=== PATIENT | female | born 1990 | race Caucasian/White ===

== ENCOUNTER 2016-11-01 17:52 | Emergency (ER) | payer OTHER ==
[2016-11-01 18:11] VITALS: O2SAT 98
--- NOTE | 2016-11-01 18:19 | ERPHSYRPT ---
- History of Present Illness Time Seen by Provider: 11/01/16 18:13 Source: patient Exam Limitations: clinical condition Patient Subjective Stated Complaint: pt co vaginal bleeding about a 45 mins ago , blood when wiped after voiding x2, cramping on and off but nonw now, pt also states she fell today, tripped on curb and fell, landed on buttock. Triage Nursing Assessment: pt alert, resp easy, skin w/d pink, abd soft nontender, denies pain with urination, no fever, 4,para 3 Physician History: PATIENT IS A -4, PARA-3, -0, 9 WEEKS GESTATION COMPLAINS OF PELVIC CRAMPING, AND VAGINAL SPOTTING AFTER SLIP AND FALL ONTO BUTTOCK. DENIES PASSAGE OF TISSUE, OR CLOTS. Timing/Duration: today Activites at Onset: none Quality: cramping Onset Location: pelvic pain Pain Radiation: none Severity of Pain-Max: mild Severity of Pain-Current: mild Prior abdominal problems: none Sexual intercourse history: non-contributory Modifying Factors: Improves With: nothing Associated Symptoms: denies symptoms Allergies/Adverse Reactions: No Known Drug Allergies Allergy (Unverified 11/01/16 18:11) Home Medications: Albuterol Sulfate [Proair Hfa] 2 puff PRN 11/01/16 [History] Vits W-Ca,Fe,FA(<1Mg) [] 1 ea DAILY 11/01/16 [History] Hx Influenza Vaccination/Date Given: No Hx Pneumococcal Vaccination/Date Given: No - Review of Systems Constitutional: No Fever, No Chills Eyes: No Symptoms Ears, Nose, & Throat: No Symptoms Respiratory: No Symptoms, No Cough, No Dyspnea Cardiac: No Symptoms, No Chest Pain, No Edema, No Syncope Abdominal/Gastrointestinal: No Symptoms, No Abdominal Pain, No Nausea, No Vomiting, No Diarrhea Genitourinary Symptoms: , Vaginal Bleeding, No Dysuria Musculoskeletal: No Symptoms, No Back Pain, No Neck Pain Skin: No Rash Neurological: No Dizziness, No Focal Weakness, No Sensory Changes Psychological: No Symptoms Endocrine: No Symptoms All Other Systems: Reviewed and Negative - Past Medical History Pertinent Past Medical History: No - Past Surgical History Past Surgical History: No - Social History Smoking Status: Current every day smoker Exposure to second hand smoke: Yes Drug Use: none Patient Lives Alone: No - Female History Hx Last Menstrual Period: august 31 2016 Expected Date of Delivery: 06/07/17 - Nursing Vital Signs Nursing Vital Signs: Initial Vital Signs Temperature 98 F Temperature Source Oral Pulse Rate 72 Respiratory Rate 16 Blood Pressure [] 105/60 Pain Intensity 0 - Physical Exam General Appearance: no apparent distress, alert Eye Exam: PERRL/EOMI, eyes nml inspection Ears, Nose, Throat Exam: normal ENT inspection, TMs normal, pharynx normal, moist mucous membranes Neck Exam: normal inspection, non-tender, supple, full range of motion Respiratory Exam: normal breath sounds, lungs clear, No respiratory distress Cardiovascular Exam: regular rate/rhythm, normal heart sounds, normal peripheral pulses Gastrointestinal/Abdomen Exam: soft, normal bowel sounds, tenderness ( SUPRAPUBIC TENDERNESS), No mass Pelvic Exam: normal external exam, other (TRACE BLOOD IN VAGINAL VAULT, EXTERNAL OS OF CERVIC CLOSED, UTERINE SIZE 8-9 WEEKS) Back Exam: normal inspection, normal range of motion, No CVA tenderness, No vertebral tenderness Extremity Exam: normal inspection, normal range of motion, pelvis stable Neurologic Exam: alert, oriented x 3, cooperative, neon technician II-XII nml as tested, normal mood/affect, sensation nml, No motor deficits Skin Exam: normal color, warm, dry Lymphatic Exam: No adenopathy SpO2: 98 Oxygen Delivery: Room Air - Radiology Ultrasound Exam Pelvis Ultrasound: tele radiology report OB Ultrasound: discussed w/radiologist (THERE IS A 8 WEEK INTRAUTERINE FETUS WITH FHT 156) Ordered Tests: Active Orders 24 hr Category Date Time Status Pelvic Exam Assist STAT Care 11/01/16 18:28 Active OB <14 WKS 1ST GESTATION [US] Stat Exams 11/01/16 18:27 Taken HCG,QUALITATIVE URINE Stat Lab 11/01/16 18:15 Completed UA W/ MICROSCOPIC Stat Lab 11/01/16 18:15 Results Wet Prep Stat Lab 11/01/16 18:15 Results Lab/Rad Data: Laboratory Results 11/01/16 11/01/16 Range/Units 18:15 18:15 Ur Collection Type CLEAN CATCH Urine Color YELLOW (YELLOW) Urine Appearance CLEAR (CLEAR) Urine pH 6.0 (5-6) Ur Specific [place] 1.005 (1.005-1.025) Urine Protein NEGATIVE (Negative) Urine Ketones NEGATIVE (NEGATIVE) Urine Blood 50 (0-5) Telly/ul Urine Nitrite NEGATIVE (NEGATIVE) Urine Bilirubin MODERATE (NEGATIVE) Urine Urobilinogen NORMAL (0-1) mg/dL Ur Leukocyte Esterase TRACE (NEGATIVE) Urine Microscopic RBC 0-2 (0-2) /HPF Urine Microscopic WBC 0-2 (0-5) /HPF Ur Epithelial Cells MODERATE (FEW) /HPF Urine Bacteria MODERATE (NEGATIVE) /HPF Urine Mucus MODERATE (NEGATIVE) /HPF Urine Glucose NEGATIVE (NEGATIVE) mg/dL Urine HCG, Qual POSITIVE (Negative) WBC (Wet Prep) Pending RBC (Wet Prep) Pending Epi Cells (Wet Prep) Pending Bacteria (Wet Prep) Pending Clue Cells (Wet Prep) Pending Trichomonas (Wet Prep) Pending Budding Yeast (Wet Prp) Pending Specimen Received 11/01/16:1815 - Progress Counseled pt/family regarding: lab results, diagnosis, need for follow-up - Departure Time of Disposition: 19:20 Departure Disposition: Home Clinical Impression: THREATENED Condition: Stable Critical Care Time: No Instructions: Threatened Additional Instructions: FOLLOWUP WITH YOUR PRIMARY CARE PHYSICIAN IN 1 WEEK. REDUCE ACTIVITY LEVEL. RETURN TO EMERGENCY FOR INCREASED VAGINAL BLEEDING OR PASSAGE OF TISSUE.
[2016-11-01 18:45] LABS: Bilirubin MODERATE (NEGATIVE); Collection Type CLEAN CATCH; Glucose NEGATIVE (NEGATIVE); Leukocyte Esterase TRACE (NEGATIVE)
[2016-11-01 18:46] LABS: Bacteria MODERATE /HPF (NEGATIVE); Blood 50 Ery/ul (0-5); COMPLETE URINE MICROSCOPIC? YES; Epithelial Cells MODERATE /HPF (FEW); Mucus MODERATE /HPF (NEGATIVE); WBC 0-2 /HPF (0-5)
[2016-11-01 18:47] LABS: ADD URINE CULTURE? YES (NO)
[2016-11-01 19:13] VITALS: BP 105/60; PULSE 72
--- NOTE | 2016-11-02 09:08 | XRAY ---
Indication: Spotting following fall. Two-dimensional transabdominal early OB ultrasound performed. Comparison: None There is a single intrauterine gestational sac with presence of a single pole and yolk sac. The mean crown-rump length measures 1.72 cm corresponding to 8 weeks 1 day. heart rate 156 bpm. No abnormal subchorionic fluid collection. Left and right ovaries sonographically unremarkable. No suspicious adnexal mass or free fluid. Impression: Single viable intrauterine measuring 8 weeks 1 day. Expected date confinement is June 12, 2017. Comment: Preliminary report was given.
== END 2016-11-01 19:23 | disposition home or self-care (01) ==
LOC: ED 17:52
DX: O20.0 Threatened abortion (principal)
CPT/HCPCS: 76801; 81000; 84703; 87086; 99284

== ENCOUNTER 2017-01-15 17:37 | Emergency (ER) | payer OTHER ==
--- NOTE | 2017-01-15 19:37 | ERPHSYRPT ---
- History of Present Illness Time Seen by Provider: 01/15/17 19:25 Source: patient Exam Limitations: no limitations Patient Subjective Stated Complaint: pt states she is 19 weeks and 4 days . states she is worried she maybe pre-ecplamptic. states she has lower abdominal cramping that has been normal for her . denies any vaginal bleeding. Triage Nursing Assessment: pt pink, warm, dry. bilateral edema noted to lower extremities. Physician History: FOR THE PAST 3 DAYS PT HAS HAD SWELLING IN THE LEGS. PT STATES SHE IS 19 WEEKS AND HAS HAD GOOD MOVEMENT TODAY. PT ALSO C/O DAILY VOMITING DURING THIS EXCEPT FOR THE PAST 3 DAYS. LAST BM WAS 3 DAYS AGO AND HARD. PT DENIES CHEST PAIN, SHORTNESS OF AIR, FEVER; ADMITS TO LOWER ABDOMINAL CRAMPS DURING AND DECREASED URINARY OUTPUT FOR THE PAST 3 DAYS. Allergies/Adverse Reactions: No Known Drug Allergies Allergy (Unverified 11/01/16 18:11) Home Medications: Vits W-Ca,Fe,FA(<1Mg) [] 1 ea PO DAILY 11/01/16 [History] Hx Tetanus, Diphtheria Vaccination/Date Given: Yes (up to date) Hx Influenza Vaccination/Date Given: No Hx Pneumococcal Vaccination/Date Given: No Immunizations Up to Date: Yes - Review of Systems Constitutional: No Fever Respiratory: No Dyspnea Cardiac: No Chest Pain Abdominal/Gastrointestinal: Abdominal Pain, Vomiting Genitourinary Symptoms: Other (DECREASED URINARY OUTPUT FOR THE PAST 3 DAYS.), No Vaginal Discharge Musculoskeletal: Other (SWELLING IN LEGS FOR THE PAST 3 DAYS) All Other Systems: Reviewed and Negative - Past Medical History Pertinent Past Medical History: Yes Other Medical History: opiate dependency - Past Surgical History Past Surgical History: No - Social History Smoking Status: Current every day smoker How long have you smoked: 10 Exposure to second hand smoke: Yes Drug Use: none Patient Lives Alone: No - Female History Hx Last Menstrual Period: 08/2016 Expected Date of Delivery: 06/07/17 - Nursing Vital Signs Nursing Vital Signs: Initial Vital Signs Temperature 98.0 F 01/15/17 18:29 Pulse Rate 73 01/15/17 18:29 Respiratory Rate 16 01/15/17 18:29 Blood Pressure 116/63 01/15/17 18:29 O2 Sat by Pulse Oximetry 100 01/15/17 18:29 Pain Scale Pain Intensity 0 - Physical Exam General Appearance: alert Eye Exam: PERRL/EOMI Ears, Nose, Throat Exam: pharynx normal, moist mucous membranes Neck Exam: normal inspection Respiratory Exam: lungs clear Cardiovascular Exam: normal heart sounds Gastrointestinal/Abdomen Exam: normal bowel sounds, tenderness (MILD LOWER ABDOMINAL TENDERNESS), other (GRAVID UTERUS WITH FUNDUS 1 CM BELOW UMBILICUS) Back Exam: normal range of motion Extremity Exam: swelling (+1 EDEMA OF LOWER LEGS) Neurologic Exam: alert, cooperative Skin Exam: warm, dry SpO2 Interpretation: normal SpO2: 100 Oxygen Delivery: Room Air - Course Nursing assessment & vital signs reviewed: Yes - Radiology Ultrasound Exam OB Ultrasound: Other (TECH REPORT: 19 WEEK 2 DAY, HR = 141, NO ABNORMALITY.) Ordered Tests: Active Orders 24 hr Category Date Time Status Clean Catch Urine Specimen STAT Care 01/15/17 19:01 Active OB >14 WKS 1st GESTATION [US] Stat Exams 01/15/17 19:43 Ordered AMYLASE Stat Lab 01/15/17 19:43 Completed CBC W DIFF Stat Lab 01/15/17 19:43 Completed CMP Stat Lab 01/15/17 19:43 Completed LIPASE Stat Lab 01/15/17 19:43 Completed UA W/RFX UR CULTURE Stat Lab 01/15/17 19:30 Completed Urine Triage Profile Stat Lab 01/15/17 19:48 Completed Lab/Rad Data: Laboratory Result Diagrams 01/15/17 19:43 01/15/17 19:43 Laboratory Results 01/15/17 01/15/17 01/15/17 Range/Units 19:48 19:43 19:43 WBC 6.6 (4.0-10.5) K/mm3 RBC 3.45 L (4.1-5.4) M/mm3 Hgb 11.1 L (12.0-16.0) gm/dl Hct 32.5 L (35-47) % MCV 94.2 (78-100) fl MCH 32.1 H (26-32) pg MCHC 34.2 (32-36) g/dl RDW 12.8 (11.5-14.0) % Plt Count 133 L (150-450) K/mm3 MPV 10.3 H (6-9.5) fl Gran % 71.7 H (36.0-66.0) % Lymphocytes % 16.6 L (24.0-44.0) % Monocytes % 8.9 (0.0-12.0) % Eosinophils % 2.6 (0.00-5.0) % Basophils % 0.2 (0.0-0.4) % Basophils # 0.01 (0-0.4) Sodium 140 (136-145) mEq/L Potassium 3.7 (3.5-5.1) mEq/L Chloride 107 (98-107) mEq/L Carbon Dioxide 26.3 (21-32) mEq/L Anion Gap 10.7 (5-15) MEQ/L BUN 5 L (9-20) mg/dL Creatinine 0.53 L (0.55-1.30) mg/dl Estimated GFR > 60 ML/MIN Glucose 89 (70-110) MG/DL Calcium 8.9 (8.5-10.1) mg/dL Total Bilirubin 0.50 (0.2-1.0) mg/dL AST 18 (15-37) U/L ALT 18 (12-78) U/L Alkaline Phosphatase 66 (46-116) U/L Serum Total Protein 5.3 L (6.4-8.2) gm/dL Albumin 2.6 L (3.4-5.0) g/dL Amylase 24 L (25-115) U/L Lipase 50 L (73-393) U/L Ur Collection Type Urine Color (YELLOW) Urine Appearance (CLEAR) Urine pH (5-6) Ur Specific [place] (1.005-1.025) Urine Protein (Negative) Urine Ketones (NEGATIVE) Urine Blood (0-5) Telly/ul Urine Nitrite (NEGATIVE) Urine Bilirubin (NEGATIVE) Urine Urobilinogen (0-1) mg/dL Ur Leukocyte Esterase (NEGATIVE) Urine Glucose (NEGATIVE) mg/dL Urine Opiates Level NEG. (NEGATIVE) Ur Methadone NEG. (NEGATIVE) Urine Barbiturates NEG. (NEGATIVE) Ur Phencyclidine (PCP) NEG. (NEGATIVE) Urine Amphetamine NEG. (NEGATIVE) U Benzodiazepine Level NEG. (NEGATIVE) Urine Cocaine NEG. (NEGATIVE) Urine Marijuana (THC) NEG. (NEGATIVE) Specimen Received 01/15/17 Range/Units 19:30 WBC (4.0-10.5) K/mm3 RBC (4.1-5.4) M/mm3 Hgb (12.0-16.0) gm/dl Hct (35-47) % MCV (78-100) fl MCH (26-32) pg MCHC (32-36) g/dl RDW (11.5-14.0) % Plt Count (150-450) K/mm3 MPV (6-9.5) fl Gran % (36.0-66.0) % Lymphocytes % (24.0-44.0) % Monocytes % (0.0-12.0) % Eosinophils % (0.00-5.0) % Basophils % (0.0-0.4) % Basophils # (0-0.4) Sodium (136-145) mEq/L Potassium (3.5-5.1) mEq/L Chloride (98-107) mEq/L Carbon Dioxide (21-32) mEq/L Anion Gap (5-15) MEQ/L BUN (9-20) mg/dL Creatinine (0.55-1.30) mg/dl Estimated GFR ML/MIN Glucose (70-110) MG/DL Calcium (8.5-10.1) mg/dL Total Bilirubin (0.2-1.0) mg/dL AST (15-37) U/L ALT (12-78) U/L Alkaline Phosphatase (46-116) U/L Serum Total Protein (6.4-8.2) gm/dL Albumin (3.4-5.0) g/dL Amylase (25-115) U/L Lipase (73-393) U/L Ur Collection Type CLEAN CATCH Urine Color LT.YELLOW (YELLOW) Urine Appearance CLEAR (CLEAR) Urine pH 6.0 (5-6) Ur Specific [place] 1.010 (1.005-1.025) Urine Protein NEGATIVE (Negative) Urine Ketones NEGATIVE (NEGATIVE) Urine Blood NEGATIVE (0-5) Telly/ul Urine Nitrite NEGATIVE (NEGATIVE) Urine Bilirubin NEGATIVE (NEGATIVE) Urine Urobilinogen NORMAL (0-1) mg/dL Ur Leukocyte Esterase NEGATIVE (NEGATIVE) Urine Glucose NEGATIVE (NEGATIVE) mg/dL Urine Opiates Level (NEGATIVE) Ur Methadone (NEGATIVE) Urine Barbiturates (NEGATIVE) Ur Phencyclidine (PCP) (NEGATIVE) Urine Amphetamine (NEGATIVE) U Benzodiazepine Level (NEGATIVE) Urine Cocaine (NEGATIVE) Urine Marijuana (THC) (NEGATIVE) Specimen Received 01/15/171929 - Departure Time of Disposition: 20:43 Departure Disposition: Home Clinical Impression: DEPENDENT EDEMA OF LEGS, ABDOMINAL CRAMPS Condition: Stable Critical Care Time: No Referrals: GLENNY MADERA MD [Primary Care Provider] - Instructions: Dependent Edema Additional Instructions: FOLLOW UP WITH PRIVATE DOCTOR TOMORROW. ELEVATE LEGS ABOVE HEART LEVEL FOR 24 HOURS.
[2017-01-15 19:38] LABS: ADD URINE CULTURE? NO (NO); Bilirubin NEGATIVE (NEGATIVE); Blood NEGATIVE Ery/ul (0-5); COMPLETE URINE MICROSCOPIC? NO; Collection Type CLEAN CATCH; Glucose NEGATIVE (NEGATIVE); Leukocyte Esterase NEGATIVE (NEGATIVE)
[2017-01-15 20:17] LABS: BASOPHIL % 0.2 % (0.0-0.4); Eosinophil % 2.6 % (0.00-5.0); Granulocytes % 71.7 % (36.0-66.0); Lymphocytes % 16.6 % (24.0-44.0); Mean Cell Volume 94.2 fl (78-100); Mean Platelet Volume 10.3 fl (6-9.5); Monocytes % 8.9 % (0.0-12.0); Platelet Count 133 K/mm3 (150-450); Red Blood Count 3.45 M/mm3 (4.1-5.4); Red Cell Distribution Width 12.8 % (11.5-14.0); White Blood Count 6.6 K/mm3 (4.0-10.5)
[2017-01-15 20:21] LABS: Mean Corpuscular Hemoglobin 32.1 pg (26-32)
[2017-01-15 20:23] LABS: ALBUMIN 2.6 g/dL (3.4-5.0); ANION GAP 10.7 MEQ/L (5-15); BLOOD UREA NITROGEN 5 mg/dL (9-20); CHLORIDE 107 mEq/L (98-107); Carbon Dioxide 26.3 mEq/L (21-32); Glucose 89 MG/DL (70-110); LIPASE 50 U/L (73-393); Potassium 3.7 mEq/L (3.5-5.1); SODIUM 140 mEq/L (136-145)
[2017-01-15 20:34] LABS: ALKALINE PHOSPHATASE 66 U/L (46-116); SGOT/AST 18 U/L (15-37); SGPT/ALT 18 U/L (12-78); Total Protein 5.3 gm/dL (6.4-8.2)
[2017-01-15 20:48] VITALS: BP 98/62; PULSE 88; O2SAT 98
--- NOTE | 2017-01-16 09:12 | XRAY ---
Indication: Pain. 2-dimensional OB ultrasound performed. Comparison: January 07, 2017. Again there is a single viable intrauterine again in breech presentation. Normal four-chamber heart with heart rate 141 bpm. Normal three-vessel cord and cord insertion. Visualized head, stomach, and kidneys are unremarkable. Placenta is again anterior without abruption/previa. Cervical length measures 3.4 cm. BPD measures 4.59 cm corresponding to 19 weeks 6 days. HC measures 16.65 cm corresponding to 19 weeks 2 days. AC measures 14.46 cm corresponding to 19 weeks 5 days. FL measures 2.65 cm corresponding to 18 weeks 0 days. Impression: Again single viable intrauterine with mean gestational age 19 weeks 2 days. Normal progression of . Nothing acute.
== END 2017-01-15 20:48 | disposition home or self-care (01) ==
LOC: ED 17:37
DX: O12.02 Gestational edema, second trimester (principal); Z3A.19 19 weeks gestation of pregnancy; R10.9 Unspecified abdominal pain
CPT/HCPCS: 36415; 76805; 80053; 80307; 81002; 82150; 83690; 85025; 99284

== ENCOUNTER 2017-05-01 17:57 | Observation (INO) | payer BC, OTHER ==
[2017-05-01 18:28] VITALS: PULSE 82
[2017-05-01 19:12] LABS: Bacteria MODERATE /HPF (NEGATIVE); Bilirubin NEGATIVE (NEGATIVE); Blood NEGATIVE Ery/ul (0-5); COMPLETE URINE MICROSCOPIC? YES; Collection Type CCMS; Epithelial Cells FEW /HPF (FEW); Glucose NEGATIVE (NEGATIVE); Leukocyte Esterase TRACE (NEGATIVE)
[2017-05-01] MEDS ORDERED: BRETHINE 1 MG/ML SQ ONE (19:21)
[2017-05-01] MEDS ORDERED: Lactated Ringers 1,000 ML IV SCH (19:30)
[2017-05-01] MEDS ORDERED: Lactated Ringers 1,000 ML IV ONE (19:42)
[2017-05-01] MEDS ORDERED: BRETHINE 1 MG/ML ONE (19:42)
[2017-05-01 23:05] VITALS: BP 97/51
== END 2017-05-01 22:50 | disposition home or self-care (01) ==
LOC: UNDOADMOB 17:57 → OB 17:57 → UNDODISOB 22:50
PROVIDERS: ADMIT Family Medicine; ATTEND Family Medicine
DX: Z34.83 Encounter for supervision of other normal pregnancy, third trimester (principal)
CPT/HCPCS: 80307; 81000; G0378

== ENCOUNTER 2017-05-21 18:01 | Observation (INO) | payer BC, OTHER ==
[2017-05-21] MEDS ORDERED: XYLOCAINE 1% HCL 20 ML MDV IJ PRN (18:38)
[2017-05-21] MEDS ORDERED: Ephedrine Sulfate 50 MG/ML IV PRN (18:38)
[2017-05-21] MEDS ORDERED: Zofran 4 MG/2 ML VIAL IV PRN (18:38)
[2017-05-21] MEDS ORDERED: Nubain 10 MG/ML IV PRN (18:38)
[2017-05-21] MEDS ORDERED: STADOL 2 MG IV PRN (18:38)
[2017-05-21] MEDS ORDERED: OB EPIDURAL NAROPIN/SUFENTANIL IN NACL EPIDURAL PRN (18:38)
[2017-05-21] MEDS ORDERED: Lactated Ringers 1,000 ML IV ONE ×2 (18:38)
[2017-05-21] MEDS ORDERED: TYLENOL EXTRA STRENGTH 500 MG PO PRN (18:38)
[2017-05-21] MEDS ORDERED: Phenergan 25 MG INJ IV PRN (18:38)
[2017-05-21] MEDS ORDERED: PITOCIN 30 UNITS/ LR 500 ML 500 ML IV SCH (19:00)
[2017-05-21] MEDS ORDERED: Lactated Ringers 1,000 ML IV SCH (19:00)
[2017-05-21 19:09] LABS: Granulocyte Absolute (ANC) 9.21 (1.4-6.9); Hematocrit 39.1 % (35-47); Hemoglobin 12.8 gm/dl (12.0-16.0); Mean Cell Volume 94.2 fl (78-100); Mean Corpuscular Hemoglobin 30.8 pg (26-32); Mean Corpuscular Hgb Concent. 32.7 g/dl (32-36); Platelet Count 133 K/mm3 (150-450); Red Blood Count 4.15 M/mm3 (4.1-5.4); Red Cell Distribution Width 13.2 % (11.5-14.0); White Blood Count 11.3 K/mm3 (4.0-10.5)
[2017-05-21 19:43] VITALS: PULSE 76
[2017-05-22 00:26] VITALS: BP 109/58
== END 2017-05-21 23:40 | disposition home or self-care (01) ==
LOC: OB 18:01 → UNDOADMOB 18:01 → UNDODISOB 23:40
PROVIDERS: ADMIT Family Medicine; ATTEND Family Medicine
DX: Z34.83 Encounter for supervision of other normal pregnancy, third trimester (principal)
CPT/HCPCS: 36415; 85025; G0378

== ENCOUNTER 2017-06-09 11:19 | Inpatient (IN) | payer BC, OTHER ==
[2017-06-09] MEDS ORDERED: Phenergan 25 MG INJ IV PRN (11:38)
[2017-06-09] MEDS ORDERED: STADOL 2 MG IV PRN (11:38)
[2017-06-09] MEDS ORDERED: Zofran 4 MG/2 ML VIAL IV PRN (11:38)
[2017-06-09] MEDS ORDERED: TYLENOL EXTRA STRENGTH 500 MG PO PRN ×2 (11:38→15:04)
[2017-06-09] MEDS ORDERED: Nubain 10 MG/ML IV PRN (11:38)
[2017-06-09] MEDS ORDERED: Lactated Ringers 2,000 ML IV ONE (11:46)
[2017-06-09] MEDS ORDERED: OB EPIDURAL NAROPIN/SUFENTANIL IN NACL EPIDURAL PRN (11:54)
[2017-06-09] MEDS ORDERED: Lactated Ringers 1,000 ML IV ONE (11:54)
[2017-06-09] MEDS ORDERED: Ephedrine Sulfate 50 MG/ML IV PRN (11:54)
[2017-06-09] MEDS ORDERED: PITOCIN 30 UNITS/ LR 500 ML 500 ML IV SCH (12:00)
[2017-06-09 12:01] LABS: BASOPHIL % 0.2 % (0.0-0.4); Basophil (Absolute #) 0.02 (0-0.4); Eosinophil % 1.9 % (0.00-5.0); Eosinophil (Absolute #) 0.23 (0-0.5); Granulocytes % 76.6 % (36.0-66.0); Hematocrit 40.4 % (35-47); Hemoglobin 13.5 gm/dl (12.0-16.0); Lymphocyte (Absolute #) 1.55 (1.0-4.6); Lymphocytes % 12.6 % (24.0-44.0); Mean Cell Volume 93.3 fl (78-100); Mean Corpuscular Hemoglobin 31.2 pg (26-32); Mean Corpuscular Hgb Concent. 33.4 g/dl (32-36); Mean Platelet Volume 11.5 fl (6-9.5); Monocyte (Absolute #) 1.07 (0.0-1.3); Monocytes % 8.7 % (0.0-12.0); Platelet Count 121 K/mm3 (150-450); Red Blood Count 4.33 M/mm3 (4.1-5.4); Red Cell Distribution Width 13.1 % (11.5-14.0); White Blood Count 12.3 K/mm3 (4.0-10.5)
[2017-06-09 13:20] LABS: Amphetamine,Urine NEG. (NEGATIVE); Barbiturate,Urine NEG. (NEGATIVE); Benzodiazepine,Urine NEG. (NEGATIVE); Cocaine,Urine NEG. (NEGATIVE); Methadone,Urine NEG. (NEGATIVE); Opiate,Urine NEG. (NEGATIVE); PCP,Urine NEG. (NEGATIVE); THC,Urine NEG. (NEGATIVE)
[2017-06-09] MEDS ORDERED: XYLOCAINE 1% HCL 20 ML MDV IJ PRN (13:25)
[2017-06-09] MEDS ORDERED: Lactated Ringers 1,000 ML IV SCH (13:30)
[2017-06-09] MEDS ORDERED: Dulcolax 10 MG SUPP PR PRN (15:04)
[2017-06-09] MEDS ORDERED: TUCKS TP PRN (15:04)
[2017-06-09] MEDS ORDERED: Dermoplast Spray TP PRN (15:04)
[2017-06-09] MEDS ORDERED: Mylicon 80MG PO PRN (15:04)
[2017-06-09] MEDS ORDERED: LANSINOH 40 GM TOP PRN (15:04)
[2017-06-09] MEDS ORDERED: CORTISONE 1% CREAM TP PRN (15:04)
[2017-06-09] MEDS ORDERED: Ambien 10 MG PO PRN (15:04)
[2017-06-09] MEDS ORDERED: Anucort-HC SUPPOSITORY PR PRN (15:04)
[2017-06-09] MEDS ORDERED: Restoril 15 MG PO PRN (15:04)
[2017-06-09] MEDS: MOTRIN 400 MG PO PRN (19:53)
[2017-06-09] MEDS: Colace 100 MG PO SCH (22:58)
[2017-06-10] MEDS: MOTRIN 400 MG PO PRN ×3 (03:30→18:49)
[2017-06-10] MEDS: NORCO 5/325 MG PO PRN ×3 (05:15→20:28)
[2017-06-10 06:24] LABS: BASOPHIL % 0.1 % (0.0-0.4); Basophil (Absolute #) 0.01 (0-0.4); Eosinophil % 1.9 % (0.00-5.0); Granulocyte Absolute (ANC) 7.47 (1.4-6.9); Hematocrit 35.7 % (35-47); Lymphocyte (Absolute #) 1.74 (1.0-4.6); Lymphocytes % 16.7 % (24.0-44.0); Mean Cell Volume 93.9 fl (78-100); Mean Corpuscular Hgb Concent. 33.6 g/dl (32-36); Mean Platelet Volume 11.3 fl (6-9.5); Monocyte (Absolute #) 0.97 (0.0-1.3); Monocytes % 9.3 % (0.0-12.0); Platelet Count 100 K/mm3 (150-450); Red Cell Distribution Width 13.1 % (11.5-14.0); White Blood Count 10.4 K/mm3 (4.0-10.5)
[2017-06-10 06:39] LABS: Mean Corpuscular Hemoglobin 31.5 pg (26-32)
[2017-06-10] MEDS ORDERED: PROVENTIL COMMON CANISTER IH SCH (07:00)
[2017-06-10] MEDS ORDERED: MEDICATION INTERVENTION MC PRN (07:36)
[2017-06-10] MEDS ORDERED: Ventolin Hfa MDI IH SCH (07:45)
[2017-06-10] MEDS ORDERED: PRENATAL VITS W CA FE FA PO SCH (10:00)
[2017-06-10] MEDS ORDERED: BUPRENORPHINE HCL 8 MG SL SCH (10:00)
[2017-06-10] MEDS: Colace 100 MG PO SCH ×2 (10:38→21:49)
[2017-06-10] MEDS: FERREX 150 PO SCH (10:38)
[2017-06-10] MEDS: THERAGRAN MULTIVITAMIN PO SCH (10:40)
[2017-06-11] MEDS: NORCO 5/325 MG PO PRN ×6 (00:29→21:02)
[2017-06-11] MEDS: MOTRIN 400 MG PO PRN ×4 (01:05→23:44)
[2017-06-11] MEDS: Colace 100 MG PO SCH ×2 (09:02→21:01)
[2017-06-11] MEDS: FERREX 150 PO SCH (09:02)
[2017-06-11] MEDS: THERAGRAN MULTIVITAMIN PO SCH (09:02)
[2017-06-12] MEDS: NORCO 5/325 MG PO PRN ×3 (01:40→10:31)
[2017-06-12] MEDS: MOTRIN 400 MG PO PRN (09:22)
[2017-06-12 09:34] VITALS: BP 113/64; PULSE 70
--- NOTE | 2017-06-12 09:35 | PCM.DS ---
Discharge Summary Date of Admission: 06/09/17 11:19 Admitting Physician: GLENNY MADERA Primary Care Provider: GLENNY MADERA Allergies Allergies No Known Drug Allergies Allergy (Unverified 11/01/16 18:11) Hospital Summary - Hospital Course Hospital Course: 27yo arrived and delivery by at 40 2/7 wks EGA. She has a history of opiate addiction and is under the care of Dr Vega for buprenoprhine therapy. She delivered a viable male infant 7#9oz, bottle feeding. she was unable to bring her medication to the hospital and with ok from Dr Vega has been given norco during the hospital stay. - Vitals & Intake/Output Vital Signs: Vital Signs Temperature 98.3 F 06/11/17 21:00 Pulse Rate 67 06/12/17 03:00 Respiratory Rate 18 06/12/17 03:00 Blood Pressure 130/60 06/12/17 03:00 O2 Sat by Pulse Oximetry Oxygen-Last Documented O2 Percentage 100% Intake & Output: Intake & Output 06/09/17 06/10/17 06/11/17 06/12/17 11:59 11:59 11:59 11:59 Intake Total 3790 1950 1200 Balance 3790 1950 1200 Weight 66.678 kg - Lab Result Diagrams: 06/10/17 05:19 Discharge Exam General Appearance: no apparent distress, alert Skin Exam: normal color, warm, dry Respiratory Exam: normal breath sounds, lungs clear, No respiratory distress Cardiovascular Exam: regular rate/rhythm, normal heart sounds Gastrointestinal/Abdomen Exam: soft, No tenderness, No mass Extremity Exam: normal inspection, normal range of motion Final Diagnosis/Problem List - Final Discharge Diagnosis/Problem (1) Vaginal delivery Current Visit: Yes Status: Acute Assessment & Plan: doing well (2) Opiate addiction Current Visit: Yes Status: Acute Assessment & Plan: discharge was delayed due to concern for opiate withdrawal and need to treat with pain medication post-delivery and unable to obtain home buprenorphine. baby is being kept due to withdrawal symptoms. CPS to be notified prior to discharge. - Discharge Disposition: Home, Self-Care Condition: Stable Prescriptions: Continue Buprenorphine HCl 8 mg SL BID Albuterol Sulfate [Ventolin Hfa] 8 gm IH Q4H Discontinued Vits W-Ca,Fe,FA(<1Mg) [] 1 ea PO DAILY Follow up with: GLENNY MADERA MD [Primary Care Provider] - 1 Week
== END 2017-06-12 10:45 | disposition home or self-care (01) | DRG 775 ==
LOC: OBSVTOIN 11:19 → OB 11:19 → INTOOBSV 11:19 → UNDOADMOB 11:19
PROVIDERS: ADMIT Family Medicine; ATTEND Family Medicine
PROC: 10E0XZZ Delivery of Products of Conception, External Approach (ICD-10-PCS; principal; 2017-06-09)
DX: O80 Encounter for full-term uncomplicated delivery (principal); F11.20 Opioid dependence, uncomplicated; Z3A.40 40 weeks gestation of pregnancy; Z37.0 Single live birth
CPT/HCPCS: 01967; 36415; 80307; 85025; G0378; J2590; J2795; A9270-GY

== ENCOUNTER 2018-03-21 17:29 | Emergency (ER) | payer OTHER ==
[2018-03-21 17:47] VITALS: BP 117/73; PULSE 74; O2SAT 100
--- NOTE | 2018-03-21 18:01 | ERPHSYRPT ---
- History of Present Illness Time Seen by Provider: 03/21/18 17:40 Source: patient Exam Limitations: no limitations Patient Subjective Stated Complaint: COUGH, NASAL CONGESTION FOR TWO WEEKS Triage Nursing Assessment: AMBULATED TO ROOM PER SELF. SKIN W/D, COLOR NORMAL, RESP EASY. OCC DRY COUGH NOTED. Physician History: 28 y/o white female on no rx meds and has nkda presents with 2 week h/o worsening cough, sore throat and nasal congestion not responding to otc meds. Timing/Duration: week(s) (2 ), worse Cough Quality/Degree: no cough, mild Possible Cause: no prior episodes Modifying Factors: Improves With: coughing Associated Symptoms: cough, earache, nasal congestion, sore throat Allergies/Adverse Reactions: No Known Drug Allergies Allergy (Verified 03/21/18 17:45) Home Medications: Buprenorphine HCl 8 mg SL BID 05/01/17 [History] Hx Tetanus, Diphtheria Vaccination/Date Given: No Hx Influenza Vaccination/Date Given: No Hx Pneumococcal Vaccination/Date Given: No - Review of Systems Constitutional: No Symptoms, No Fever, No Chills, No Weakness Eyes: No Symptoms, No Discharge Ears, Nose, & Throat: Ear Pain (bilat mild), Nose Congestion, Throat Pain, Painful Swallowing (mild) Respiratory: Cough Cardiac: No Symptoms, No Chest Pain, No Edema, No Palpitations, No Syncope Abdominal/Gastrointestinal: No Symptoms, No Abdominal Pain, No Nausea, No Vomiting, No Diarrhea Genitourinary Symptoms: No Symptoms, No Dysuria, No Frequency, No Hematuria Musculoskeletal: No Symptoms Skin: No Symptoms Neurological: No Symptoms Psychological: No Symptoms Endocrine: No Symptoms Hematologic/Lymphatic: No Symptoms Immunological/Allergic: No Symptoms All Other Systems: Reviewed and Negative - Past Medical History Pertinent Past Medical History: Yes Neurological History: No Pertinent History ENT History: No Pertinent History Cardiac History: No Pertinent History Respiratory History: Asthma Endocrine Medical History: No Pertinent History GI Medical History: No Pertinent History History: No Pertinent History Psycho-Social History: Depression, Panic Disorder Female Reproductive Disorders: No Pertinent History Other Medical History: hx of opiate dependency - Past Surgical History Past Surgical History: No Neuro Surgical History: No Pertinent History Cardiac: No Pertinent History Respiratory: No Pertinent History Gastrointestinal: No Pertinent History Genitourinary: No Pertinent History Musculoskeletal: No Pertinent History Female Surgical History: No Pertinent History - Social History Smoking Status: Current every day smoker How long have you smoked: 15 Exposure to second hand smoke: No Drug Use: none Patient Lives Alone: No - Female History Hx Now: No (MIRANA) - Nursing Vital Signs Nursing Vital Signs: Initial Vital Signs Temperature 98.5 F 03/21/18 17:39 Pulse Rate 74 03/21/18 17:39 Respiratory Rate 16 03/21/18 17:39 Blood Pressure 117/73 03/21/18 17:39 O2 Sat by Pulse Oximetry 100 03/21/18 17:39 Pain Scale Pain Intensity 0 - Physical Exam General Appearance: no apparent distress, alert, anxiety Eye Exam: PERRL/EOMI, eyes nml inspection Ears, Nose, Throat Exam: normal ENT inspection, TMs normal, pharynx normal, moist mucous membranes Neck Exam: normal inspection, non-tender, supple, full range of motion Respiratory Exam: normal breath sounds, lungs clear, airway intact, No chest tenderness, No respiratory distress, No accessory muscle use, No rhonchi, No wheezing, No stridor Cardiovascular Exam: regular rate/rhythm, normal heart sounds, normal peripheral pulses Gastrointestinal/Abdomen Exam: soft, normal bowel sounds, No tenderness, No guarding, No rebound Pelvic Exam: not done Rectal Exam: not done Back Exam: normal inspection, normal range of motion, No CVA tenderness, No vertebral tenderness Extremity Exam: normal inspection, normal range of motion, pelvis stable Neurologic Exam: alert, oriented x 3, cooperative, tax advisor II-XII nml as tested Skin Exam: normal color, warm, dry Lymphatic Exam: No adenopathy SpO2 Interpretation: normal SpO2: 100 Oxygen Delivery: Room Air - Course Nursing assessment & vital signs reviewed: Yes - Progress Progress: unchanged Air Movement: good Blood Culture(s) Obtained: No Antibiotics given: No Counseled pt/family regarding: diagnosis, need for follow-up - Departure Time of Disposition: 18:03 Departure Disposition: Home Clinical Impression: Sinusitis, Bronchitis Condition: Stable Critical Care Time: No Referrals: GLENNY MADERA MD [Primary Care Provider] - Additional Instructions: drink plenty of fluids. avoid exposure to any kind of smoke. follow up with primary doctor for further management Prescriptions: Cephalexin Mh 500 mg [Keflex 500 mg] 500 mg PO TID #21 capsule Hydrocodone Bit/Acetaminophen [Hydrocodone-Acetaminophen Soln] 10 ml PO Q6H # 120 ml Prednisone 10 mg [Deltasone 10 mg] 10 mg PO TID #12 tablet
[2018-03-21] MEDS ORDERED: KEFLEX 500 MG PO ONE (18:10)
[2018-03-21] MEDS ORDERED: KEFLEX 500 MG ONE (18:13)
[2018-03-21] MEDS ORDERED: DELTASONE 20 MG ONE (18:13)
[2018-03-22] MEDS ORDERED: DELTASONE 20 MG PO ONE (18:10)
== END 2018-03-21 18:35 | disposition home or self-care (01) ==
LOC: ED 17:29
DX: J32.9 Chronic sinusitis, unspecified (principal); J40 Bronchitis, not specified as acute or chronic
CPT/HCPCS: 99283; A9270-GY

== ENCOUNTER 2018-07-29 18:18 | Emergency (ER) | payer OTHER ==
[2018-07-29 19:38] LABS: INFLUENZA A NEGATIVE (NEGATIVE); INFLUENZA B NEGATIVE (NEGATIVE); RESPIRATORY SYNCTIAL VIRUS NEGATIVE (Negative)
--- NOTE | 2018-07-29 20:13 | ERPHSYRPT ---
- History of Present Illness Time Seen by Provider: 07/29/18 20:09 Source: patient Exam Limitations: no limitations Patient Subjective Stated Complaint: Pt states "I have congestion and a cough for a day or so." Triage Nursing Assessment: Pt alert and oriented X 3, skin pwd. PT ambulates with an upright steady gait, able to speak in clear full sentences. PT in no apparent respiratory distress. Physician History: 28-year-old white female with history of asthma, depression, panic disorder, opiate dependency Patient arrives with complaint of cough cold congestion symptoms for one day no fever Past medical history includes asthma, depression, panic disorder, opiate dependency Past surgical history negative Social history positive for substance abuse in the past positive tobacco use. Timing/Duration: today Severity: moderate Modifying Factors: Improves With: nothing Associated Symptoms: cough, No nausea, No vomiting, No abdominal pain, No shortness of breath, No heartburn, No diaphoresis, No chills, No chest pain, No fever, No headaches, No loss of appetite, No malaise, No rash, No syncope, No seizure, No weakness Allergies/Adverse Reactions: No Known Drug Allergies Allergy (Verified 03/21/18 17:45) Home Medications: Albuterol Common Canister [Proventil Common Canister] 1 puff IH DAILY 05/07 [History] Buprenorphine HCl/Naloxone HCl [Buprenorphin-Naloxon 8-2 mg Sl] 8 mg PO DAILY [History] Hx Tetanus, Diphtheria Vaccination/Date Given: No Hx Influenza Vaccination/Date Given: No Hx Pneumococcal Vaccination/Date Given: No Immunizations Up to Date: Yes - Review of Systems Constitutional: No Fever, No Chills Eyes: No Symptoms Ears, Nose, & Throat: Nose Congestion, Nose Discharge, No Ear Pain, No Ear Discharge, No Hearing Changes, No Tinnitus, No Sinus Drainage, No Epistaxis, No Mouth Pain, No Mouth Swelling, No Loose Teeth, No Throat Pain, No Throat Swelling, No Hoarse, No Painful Swallowing, No Snoring, No Stridor Respiratory: Cough, No Dyspnea, No Wheezing Cardiac: No Chest Pain, No Edema, No Syncope Abdominal/Gastrointestinal: No Abdominal Pain, No Nausea, No Vomiting, No Diarrhea Genitourinary Symptoms: No Dysuria Musculoskeletal: No Back Pain, No Neck Pain Skin: No Rash Neurological: No Dizziness, No Focal Weakness, No Sensory Changes Psychological: No Symptoms Endocrine: No Symptoms All Other Systems: Reviewed and Negative - Past Medical History Pertinent Past Medical History: Yes Neurological History: No Pertinent History ENT History: No Pertinent History Cardiac History: No Pertinent History Respiratory History: Asthma Endocrine Medical History: No Pertinent History GI Medical History: No Pertinent History History: No Pertinent History Psycho-Social History: Depression, Panic Disorder Female Reproductive Disorders: No Pertinent History Other Medical History: hx of opiate dependency - Past Surgical History Past Surgical History: No Neuro Surgical History: No Pertinent History Cardiac: No Pertinent History Respiratory: No Pertinent History Gastrointestinal: No Pertinent History Genitourinary: No Pertinent History Musculoskeletal: No Pertinent History Female Surgical History: No Pertinent History - Social History Smoking Status: Current every day smoker How long have you smoked: years Exposure to second hand smoke: Yes Drug Use: none Patient Lives Alone: No - Female History Hx Last Menstrual Period: mirena Hx Now: No - Nursing Vital Signs Nursing Vital Signs: Initial Vital Signs Temperature 98.3 F 07/29/18 18:33 Pulse Rate 86 07/29/18 18:33 Respiratory Rate 18 07/29/18 18:33 Blood Pressure 112/76 07/29/18 18:33 O2 Sat by Pulse Oximetry 97 07/29/18 18:33 Pain Scale Pain Intensity 0 - Physical Exam General Appearance: no apparent distress, alert Eye Exam: PERRL/EOMI, eyes nml inspection Ears, Nose, Throat Exam: normal ENT inspection, TMs normal, pharynx normal, moist mucous membranes Neck Exam: normal inspection, non-tender, supple, full range of motion Respiratory Exam: normal breath sounds, lungs clear, No respiratory distress Cardiovascular Exam: regular rate/rhythm, normal heart sounds, normal peripheral pulses, capillary refill <2 sec Gastrointestinal/Abdomen Exam: soft, normal bowel sounds, No tenderness, No mass Back Exam: normal inspection, normal range of motion, No CVA tenderness, No vertebral tenderness Extremity Exam: normal inspection, normal range of motion, pelvis stable Neurologic Exam: alert, oriented x 3, cooperative, 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 II-XII nml as tested, normal mood/affect, nml cerebellar function, nml station & gait, sensation nml, No motor deficits Skin Exam: normal color, warm, dry, No rash Lymphatic Exam: No adenopathy SpO2 Interpretation: normal (97%) SpO2: 97 - Course Nursing assessment & vital signs reviewed: Yes Lab/Rad Data: Laboratory Results 07/29/18 07/29/18 Range/Units 19:10 19:10 Influenza Type A Ag NEGATIVE (NEGATIVE) Influenza Type B Ag NEGATIVE (NEGATIVE) RSV (PCR) NEGATIVE (Negative) Group A Strep Antibody NEGATIVE (NEGATIVE) - Progress Progress: improved Progress Note: 07/29/18 20:12 28-year-old white female arrives with complaint runny nose cough congestion symptoms for one day. Patient's strep and flu are negative. Patient does have a history of smoking. Patient appears to be stable patient recommended to use [id number] cough medicines and/or decongestants plenty of fluids. Stop smoking. - Departure Time of Disposition: 20:12 Departure Disposition: Home Clinical Impression: URI (upper respiratory infection) Qualifiers: URI type: unspecified viral URI Qualified Code(s): J06.9 - Acute upper respiratory infection, unspecified Condition: Fair Critical Care Time: No Referrals: GLENNY MADERA MD [Primary Care Provider] - Instructions: Cough, Adult (DC) Additional Instructions: Return home. Plenty of fluids OTC cough medicines and decongestants as needed. Stop smoking. Tylenol every 4 hours as needed for pain. Follow-up with your family doctor if symptoms are worse, no better in 48 hours, or persist longer than one week. Return for acute distress severe symptoms or for any problems.
[2018-07-29 20:29] VITALS: BP 106/59; PULSE 80; O2SAT 100
== END 2018-07-29 20:40 | disposition home or self-care (01) ==
LOC: ED 18:18
DX: J06.9 Acute upper respiratory infection, unspecified (principal); J45.909 Unspecified asthma, uncomplicated; J44.9 Chronic obstructive pulmonary disease, unspecified; F32.9 Major depressive disorder, single episode, unspecified
CPT/HCPCS: 87631; 87651; 99283

== ENCOUNTER 2018-08-10 11:45 | Emergency (ER) | payer OTHER ==
--- NOTE | 2018-08-10 11:58 | ERPHSYRPT ---
- History of Present Illness Time Seen by Provider: 08/10/18 11:56 Source: patient Exam Limitations: no limitations Physician History: Patient states that her closed door forcefully on her right forearm, developed deformity. unable to move freely Occurred: just prior to arrival Allergies/Adverse Reactions: No Known Drug Allergies Allergy (Verified 08/10/18 11:57) Home Medications: Albuterol Common Canister [Proventil Common Canister] 1 puff IH DAILY 05/07 [History] Buprenorphine HCl/Naloxone HCl [Buprenorphin-Naloxon 8-2 mg Sl] 8 mg PO DAILY [History] Hx Tetanus, Diphtheria Vaccination/Date Given: No Hx Influenza Vaccination/Date Given: No Hx Pneumococcal Vaccination/Date Given: No - Review of Systems Constitutional: No Symptoms Eyes: No Symptoms Ears, Nose, & Throat: No Symptoms Respiratory: No Symptoms Cardiac: No Symptoms Abdominal/Gastrointestinal: No Symptoms Musculoskeletal: Deformity Skin: No Symptoms - Past Medical History Pertinent Past Medical History: Yes Neurological History: No Pertinent History ENT History: No Pertinent History Cardiac History: No Pertinent History Respiratory History: Asthma Endocrine Medical History: No Pertinent History GI Medical History: No Pertinent History History: No Pertinent History Psycho-Social History: Depression, Panic Disorder Female Reproductive Disorders: No Pertinent History Other Medical History: hx of opiate dependency - Past Surgical History Past Surgical History: No Neuro Surgical History: No Pertinent History Cardiac: No Pertinent History Respiratory: No Pertinent History Gastrointestinal: No Pertinent History Genitourinary: No Pertinent History Musculoskeletal: No Pertinent History Female Surgical History: No Pertinent History - Social History Smoking Status: Current every day smoker How long have you smoked: years Exposure to second hand smoke: Yes Drug Use: none Patient Lives Alone: No - Female History Hx Now: No - Physical Exam General Appearance: no apparent distress Eyes, Ears, Nose, Throat Exam: normal ENT inspection Neck Exam: normal inspection Cardiovascular/Respiratory Exam: chest non-tender Elbow/Forearm Exam: asymmetry, bone tenderness, deformity, limited ROM, soft tissue tenderness - Course Nursing assessment & vital signs reviewed: Yes - Radiology Exams Right Forearm X-ray Interpretation: Reviewed by me (no acute fracture) Ordered Tests: Active Orders 24 hr Category Date Time Status FOREARM Stat Exams 08/10/18 12:19 Taken - Progress Progress: improved, pain not gone completely Counseled pt/family regarding: diagnosis, need for follow-up, rad results - Departure Time of Disposition: 12:25 Departure Disposition: Transfer (under CODA care) Clinical Impression: Pain, joint, forearm, right Contusion of forearm, right Qualifiers: Encounter type: initial encounter Qualified Code(s): S50.11XA - Contusion of right forearm, initial encounter Condition: Stable Critical Care Time: No Referrals: GLENNY MADERA MD [Primary Care Provider] - Instructions: Contusion (DC) Additional Instructions: SPRAINS/STRAINS/CONTUSIONS 1. Rest the affected area as much as possible for the next few days. 2. Apply ice to the affected area for 20-30 minutes at a time, several times a day. 3. If you receive an elastic wrap, wear it only while awake for comfort and support. Re-wrap the elastic wrap if it feels too tight or too loose. 4. If swelling is present, elevate the affected part above the level of the heart for at least 2 to 3 days. 5. Use splints, slings, or crutches as instructed. 6. Watch for severe swelling, coldness, numbness, and discoloration of the fingers and toes. See your family physician or return to the emergency department if any of these are noted. Prescriptions: Naproxen 375 mg [Naprosyn 375 mg] 375 mg PO Q8H #30 tablet
[2018-08-10 12:47] VITALS: BP 116/78; PULSE 81; O2SAT 96
--- NOTE | 2018-08-10 20:43 | XRAY ---
Indication: Pain following injury. Comparison: None 2 views of the right forearm demonstrates mild distal soft tissue swelling. No other bony, articular, or soft tissue abnormalities.
== END 2018-08-10 14:50 | disposition home or self-care (01) ==
LOC: ED 11:45
DX: M79.632 Pain in left forearm (principal); S50.11XA Contusion of right forearm, initial encounter; W23.0XXA Caught, crushed, jammed, or pinched between moving objects, initial encounter; F32.9 Major depressive disorder, single episode, unspecified; J45.909 Unspecified asthma, uncomplicated; Z79.899 Other long term (current) drug therapy
CPT/HCPCS: 73090; 99284